=== PATIENT | female | born 2000 | race African-American/Black ===

== ENCOUNTER 2018-01-08 08:48 | Emergency (ER) | payer OTHER, SELFPAY ==
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
== END 2018-01-08 10:08 | disposition home or self-care (01) ==
LOC: ERS 08:48
DX: S16.1XXA Strain of muscle, fascia and tendon at neck level, initial encounter (principal); V89.2XXA Person injured in unspecified motor-vehicle accident, traffic, initial encounter
CPT/HCPCS: 72125

== ENCOUNTER 2020-07-22 13:29 | Emergency (ER) | payer OTHER, SELFPAY ==
[~2020-07-22 13:29] MED LIST: Iopamidol-370 76% 500 ML 1 ML ONE
[2020-07-22] MEDS ORDERED: Clindamycin/D5W 900 mg/50 ml Premix Bag ONE (13:51)
[2020-07-22] MEDS ORDERED: Dexamethasone 10 MG/ML VIAL ONE (13:51)
[2020-07-22 14:27] LABS: #Eosinphils 0.1 thou/uL (0.0-0.7); #Lymphocytes 1.6 thou/uL (1.20-3.40); #Monocytes 0.5 thou/uL (0.11-0.59); #Neutrophils 5.8 thou/uL (1.40-6.50); %Basophils 0.4 % (0.0-1.0); %Eosinophils 1.8 % (0.0-10.0); %Lymphocytes 20.1 % (21.0-51.0); %Monocytes 6.3 % (0.0-10.0); %Neutrophils 71.4 % (42.0-75.0); Hemoglobin 12.2 g/dL (12.0-16.0); Mean Corpuscular Hemoglobin 28.5 pg (27.0-31.0); Mean Corpuscular Volume 88.9 fL (78.0-98.0); Mean Platelet Volume 11.1 fL (7.4-10.4); Platelet Count 188 thou/uL (130-400); RBC Distribution Width 15.9 % (11.5-14.5); Red Blood Cell (RBC) Count 4.28 mill/uL (4.20-5.40); White Blood Cell (WBC) Count 8.1 thou/uL (4.8-10.8)
[2020-07-22 14:50] LABS: ALT (SGPT) 8 U/L (8-55); AST (SGOT) 14 U/L (5-34); Albumin 4.3 g/dL (3.5-5.0); Alkaline Phosphatase 75 U/L (40-110); Anion Gap 16 mmol/L (10-20); BUN (Urea Nitrogen) 7 mg/dL (7.0-18.7); Bilirubin, Total 0.3 mg/dL (0.2-1.2); Calc. Creatinine Clearance 0 mL/min (70-130); Calcium 9.1 mg/dL (7.8-10.44); Carbon Dioxide 21 mmol/L (22-29); Chloride 104 mmol/L (98-107); Globulin 3.9 g/dL (2.4-3.5); Glucose 80 mg/dL (70-105); Protein, Total 8.2 g/dL (6.0-8.3); Sodium 137 mmol/L (136-145)
[2020-07-22 15:02] LABS: BHCG - Serum Negative (NEGATIVE); Pregs Control Background? CLEAR/WHITE (CLR/WHITE); Pregs Control Bar Appear? YES (CONTROL BAR)
[2020-07-22] MEDS ORDERED: Ketorolac Tromethamine 30 MG/ML VIAL ONE (15:11)
[2020-07-22] MEDS ORDERED: Fentanyl 100 MCG/2 ML VIAL ONE (15:11)
--- NOTE | 2020-07-22 15:37 | CT ---
CT Facial Bones W Con History: Facial pain Comparison: None. Findings: Normal location of the temporomandibular joints. No mandibular fracture. Hyoid bone is inta ct. Upper cervical spine alignment is normal. No large periapical erosion along the maxilla or mandible. No periapical abscess. Extensive mucosal thickening and chronic remodeling of the right anterior ethmoid extending into the right frontal sinus with peripheral calcifications. Tongue evaluation is limited although there appears to be a small focus of peripheral enhancement beba suring up to 6 mm of the left anterior tongue tip. No tonsillar or peritonsillar abscess. Impression: 1. Small focus of peripheral enhancement measures 6 mm in transverse with a craniocaudal length of 13 mm of the left anterior tongue an area of prior iatrogenic defect from August versus abscess. 2. Extensive mucosal thickening, remodeling of the sinuses, and enhancement along the right frontal a nd anterior ethmoids may reflect polyposis. Nonemergent ENT consultation advised. Probable prior right maxillary sinus surgery.
== END 2020-07-22 18:15 | disposition home or self-care (01) ==
LOC: ERS 13:29
DX: K14.9 Disease of tongue, unspecified (principal)
CPT/HCPCS: 36415; 70487; 80053; 84703; 85025; 96365; 96375; J1100; J1885; J3010; J3490; Q9967

== ENCOUNTER 2022-08-25 12:25 | Emergency (ER) | payer SELFPAY ==
[2022-08-25 12:54] LABS: #Eosinphils 0.4 thou/uL (0.0-0.7); #Lymphocytes 2.2 thou/uL (1.20-3.40); #Monocytes 0.4 thou/uL (0.11-0.59); #Neutrophils 4.7 thou/uL (1.40-6.50); %Basophils 0.3 % (0.0-1.0); %Eosinophils 5.2 % (0.0-10.0); %Lymphocytes 28.1 % (21.0-51.0); %Monocytes 5.5 % (0.0-10.0); %Neutrophils 60.9 % (42.0-75.0); Hemoglobin 9.6 g/dL (12.0-16.0); Mean Corpuscular HGB CONC 32.2 g/dL (32.0-36.0); Mean Corpuscular Volume 71.5 fl (78.0-98.0); Mean Platelet Volume 10.9 fL (7.4-10.4); Platelet Count 335 10x3/uL (130-400); RBC Distribution Width 16.3 % (11.5-14.5); Red Blood Cell (RBC) Count 4.17 mill/uL (4.20-5.40); White Blood Cell (WBC) Count 7.7 10x3/uL (4.8-10.8)
[2022-08-25 13:04] LABS: BHCG - Serum Negative (NEGATIVE); Pregs Control Background? CLEAR/WHITE (CLR/WHITE); Pregs Control Bar Appear? YES (CONTROL BAR)
[2022-08-25 13:12] LABS: Anisocytosis SLIGHT = 6-15 cells (100X) (0-5/hpf); Hypochromia SLIGHT = 6-15 cells (100X) (0-5/hpf); MDiff Complete? YES; Microcytosis SLIGHT = 6-15 cells (100X) (0-5/hpf); Ovalocytes SLIGHT = 2-5 cells (100X) (0-1/hpf); Platelet Morphology Comment Appears Adequate; Polychromasia SLIGHT = 2-3 cells (100X) (0-2/hpf)
[2022-08-25 13:14] LABS: ALT (SGPT) 13 U/L (8-55); AST (SGOT) 14 U/L (5-34); Albumin 4.1 g/dL (3.5-5.0); Alkaline Phosphatase 84 U/L (40-110); Anion Gap 13 mmol/L (10-20); BUN (Urea Nitrogen) 10 mg/dL (7.0-18.7); Bilirubin, Total 0.3 mg/dL (0.2-1.2); Calc. Creatinine Clearance 0 mL/min (70-130); Calcium 9.7 mg/dL (7.8-10.44); Carbon Dioxide 26 mmol/L (22-29); Chloride 102 mmol/L (98-107); Estimated GFR 98; Globulin 3.5 g/dL (2.4-3.5); Glucose 94 mg/dL (70-105); Potassium 4.5 mmol/L (3.5-5.1); Protein, Total 7.6 g/dL (6.0-8.3); Sodium 136 mmol/L (136-145)
== END 2022-08-25 15:39 | disposition home or self-care (01) ==
LOC: ERS 12:25
DX: R55 Syncope and collapse (principal)
CPT/HCPCS: 36415; 71045; 80053; 84484; 84703; 85025; 93005

== ENCOUNTER 2023-09-08 14:38 | Outpatient (CLI) | payer OTHER ==
[2023-09-08 15:33] LABS: Hematocrit 27.6 % (34.9-44.5)
[2023-09-08 15:49] LABS: BHCG - Serum Negative (NEGATIVE); Pregs Control Background? CLEAR/WHITE (CLR/WHITE); Pregs Control Bar Appear? YES (CONTROL BAR)
== END 2023-09-08 14:39 | disposition home or self-care (01) ==
LOC: LABBT 14:38
PROVIDERS: ATTEND Otolaryngology Plastic Surgery within the Head & Neck
DX: Z01.812 Encounter for preprocedural laboratory examination (principal); J34.3 Hypertrophy of nasal turbinates; J32.0 Chronic maxillary sinusitis; J32.1 Chronic frontal sinusitis; J32.2 Chronic ethmoidal sinusitis; J32.3 Chronic sphenoidal sinusitis; J33.0 Polyp of nasal cavity
CPT/HCPCS: 84703; 85014

== ENCOUNTER 2023-09-10 08:11 | Day surgery (SDC) | payer OTHER ==
[2023-09-08 15:19] VITALS: BMI 38.0
[2023-09-10] MEDS ORDERED: Oxymetazoline HCl 0.05% (30 ML BOT) ONE ×2 (09:12→10:14)
[2023-09-10] MEDS ORDERED: PROPOFOL 20 ML ONE (09:33)
[2023-09-10] MEDS ORDERED: fentaNYL PF 100 MCG/2 ML SYRINGE ONE (09:34)
[2023-09-10] MEDS ORDERED: Lidocaine 1% (PF) 30 ML VIAL ONE (10:14)
[2023-09-10] MEDS ORDERED: EPINEPHrine 1 MG/ML VIAL ONE (10:14)
[2023-09-10] MEDS ORDERED: Glycopyrrolate 0.2 MG/ML 5 ML SYRINGE ONE (10:27)
[2023-09-10] MEDS ORDERED: NEOSTIGMINE 3 MG/3 ML SYR 3 MG/3 ML SYRINGE ONE (10:27)
[2023-09-10] MEDS ORDERED: Rocuronium Bromide 10 MG/ML (10ML VIAL) ONE (10:27)
[2023-09-10] MEDS ORDERED: ePHEDrine/0.9% NaCl/PF SYRINGE 50 mg/10 ml ONE (10:27)
[2023-09-10] MEDS ORDERED: Ketorolac Tromethamine 30 MG (1 mL) VIAL ONE (10:27)
[2023-09-10] MEDS ORDERED: Ondansetron PF 4 MG/2 ML Vial ONE (10:27)
[2023-09-10] MEDS ORDERED: Dexamethasone 20 MG/5 ML VIAL ONE (10:27)
[2023-09-10] MEDS ORDERED: fentaNYL 50 mcg/mL 1 mL Vial ONE ×2 (12:06→12:50)
== END 2023-09-10 14:09 | disposition home or self-care (01) ==
LOC: SDC 08:11
PROVIDERS: ATTEND Otolaryngology Plastic Surgery within the Head & Neck
PROC: 09BQ8ZZ Excision of Right Maxillary Sinus, Via Natural or Artificial Opening Endoscopic (ICD-10-PCS; principal; 2023-09-10)
PROC: 09BV8ZZ Excision of Left Ethmoid Sinus, Via Natural or Artificial Opening Endoscopic (ICD-10-PCS; principal; 2023-09-10)
PROC: 09BW8ZZ Excision of Right Sphenoid Sinus, Via Natural or Artificial Opening Endoscopic (ICD-10-PCS; principal; 2023-09-10)
PROC: 09BR8ZZ Excision of Left Maxillary Sinus, Via Natural or Artificial Opening Endoscopic (ICD-10-PCS; principal; 2023-09-10)
PROC: 09BS8ZZ Excision of Right Frontal Sinus, Via Natural or Artificial Opening Endoscopic (ICD-10-PCS; principal; 2023-09-10)
PROC: 09BL8ZZ Excision of Nasal Turbinate, Via Natural or Artificial Opening Endoscopic (ICD-10-PCS; principal; 2023-09-10)
PROC: 09BX8ZZ Excision of Left Sphenoid Sinus, Via Natural or Artificial Opening Endoscopic (ICD-10-PCS; principal; 2023-09-10)
PROC: 09BU8ZZ Excision of Right Ethmoid Sinus, Via Natural or Artificial Opening Endoscopic (ICD-10-PCS; principal; 2023-09-10)
DX: J32.4 Chronic pansinusitis (principal); J34.3 Hypertrophy of nasal turbinates; J33.9 Nasal polyp, unspecified
CPT/HCPCS: 87070; 87077; 87186; 87205; 88304; J0171; J1100; J1885; J2001; J2405; J2704; J3010